=== PATIENT | male | born 1940 | race Caucasian/White ===

== ENCOUNTER 2018-05-16 07:30 | Inpatient (IN) | payer MEDICARE, OTHER ==
[2018-05-22] MEDS ORDERED: Buffered Lidocaine 0.9% SYRIN* 5 ML/SYR SYRINGE INTRADERM ONE (13:10)
[2018-05-23] MEDS ORDERED: Acetaminophen TAB* 325 MG PO ONE (06:00)
[2018-05-23] MEDS ORDERED: Lactated Ringers 1000 ML Bag* 1,000 ML IV SCH ×2 (06:00→11:00)
[2018-05-23] MEDS ORDERED: Acetaminophen TAB* 325 MG ONE (06:33)
[2018-05-23] MEDS ORDERED: ceFAZolin 2 GM PREMIX in ORs 2 GM/50 ML BAG IVPB ONE (06:33)
[2018-05-23] MEDS ORDERED: Bacitracin IV* 50,000 UNITS INJ ONE (06:43)
[2018-05-23] MEDS ORDERED: Thrombin 5,000 UNITS* 1 APPLIC KIT - topical use - TOPICAL ONE (06:43)
[2018-05-23] MEDS ORDERED: Lidocain 1% EPI 1:100,000 * 30 ML MDV ONE (06:43)
[2018-05-23] MEDS ORDERED: fentaNYL* 50 MCG/ML 2 ML VIAL (100 MCG VIAL) ONE ×3 (07:19→11:10)
[2018-05-23] MEDS ORDERED: Midazolam* 1 MG/ML 2 ML VIAL (2 MG) ONE (07:19)
[2018-05-23] MEDS ORDERED: Propofol* 10 MG/ML 20 ML BTL ONE (07:42)
[2018-05-23] MEDS ORDERED: Famotidine IV* 10 MG/ML 2 ML (20 mg) ONE (07:42)
[2018-05-23] MEDS ORDERED: Dexamethasone IV* 4 MG/ML 1 ML (4 MG) ONE (07:42)
[2018-05-23] MEDS ORDERED: Ondansetron INJ* 2 MG/ML VIAL ONE (07:42)
[2018-05-23] MEDS ORDERED: Cisatracurium* 2 MG/ML MDV 5 ML ONE ×2 (07:43→08:45)
[2018-05-23] MEDS ORDERED: EPHEDrine (Pressors)* 50 MG/ML VIAL ONE (08:12)
[2018-05-23] MEDS ORDERED: Ondansetron INJ* 2 MG/ML VIAL IV PRN (09:03)
[2018-05-23] MEDS ORDERED: DiMENhydriNATE IV* 50 MG/ML VIAL IV PUSH PRN (09:03)
[2018-05-23] MEDS ORDERED: Naloxone* 0.4 MG/ML 1 ML VIAL IV PRN (09:03)
[2018-05-23] MEDS ORDERED: Acetaminophen TAB* 325 MG PO PRN (09:03)
[2018-05-23] MEDS ORDERED: HYDROcodone/ACETAMIN 5-325 MG* 1 TAB PO PRN (10:06)
[2018-05-23] MEDS ORDERED: Magnesium Hydroxide LIQ* 30 ML UDC PO PRN (10:06)
[2018-05-23] MEDS ORDERED: hydrALAZINE IV* 20 MG/ML VIAL ONE (10:11)
[2018-05-23] MEDS: hydrALAZINE IV* 20 MG/ML VIAL IV SLOW PU PRN ×3 (10:12→10:42)
[2018-05-23] MEDS: fentaNYL* 50 MCG/ML 2 ML VIAL (100 MCG VIAL) IV PRN ×5 (10:21→11:11)
[2018-05-23] MEDS ORDERED: Morphine VIAL* 4 MG/ML VIAL (1 ml vial) ONE (11:05)
[2018-05-23] MEDS ORDERED: Dextrose 50% Syringe 50 ML* 25 GM/50 ML SYRINGE IV PUSH PRN (11:20)
[2018-05-23] MEDS: niCARdipine 0.1MG/ML IVPREMIX* 20 MG/200 ML BAG IV SCH ×3 (12:07→17:24)
[2018-05-23] MEDS: Morphine VIAL* 4 MG/ML VIAL (1 ml vial) IV PRN ×2 (12:16→17:24)
[2018-05-23] MEDS ORDERED: Haloperidol INJ IV/IM* 5 MG/ML AMP ONE (13:11)
--- NOTE | 2018-05-23 13:13 | CONS ---
CC: Dr. Melendez; Dr. Paez; Dr. Wheatley * CONSULTATION REPORT: DATE OF CONSULT: 05/23/18 PRIMARY CARE PROVIDER: Dr. Melendez from [place]. The number to his office is [phone]. Please call, obtain fax number. REQUESTING PHYSICIAN IN CONSULT: Dr. Paez. MY ATTENDING PHYSICIAN WHILE IN THE HOSPITAL: Dr. Thu Reis * (report dictated by Peter Trammell NP). REASON FOR MEDICAL CONSULTATION: Evaluation and medical management of comorbid medical problems. HISTORY OF PRESENT ILLNESS: Mr. Pond is a 78-year-old male patient who has a pretty significant history. He has a history of [place], CAD, hypertension, GERD, hyperlipidemia, history of hydrocephalus, paroxysmal AFib, diabetes, and a history of chronic back pain. He was being followed by his PCP. It was noted that he had ventriculomegaly. It was noted that the patient was having declining memory, was having increasing falls. He was having urinary incontinence. He was referred to Dr. Wheatley, who evaluated the patient. He had a large volume LP with subsequent improvement, which lasted 3 to 4 days and it was felt that the patient would benefit from neurosurgical evaluation and possible CHEMISTRY MANAGER shunt. The patient again sought care with Dr. Paez and he underwent a CHEMISTRY MANAGER shunt placement today, but because of his medical complexity, we were asked to evaluate in consult. He was evaluated in the PACU setting. He is denying having any chest pain or shortness of breath. He is admitting to having pain in his head and he does admit to having a headache. He denies having any shortness of breath. He does admit to having incisional pain to his abdomen. He denies having any nausea and denies having any vomiting. Again, because of his medical complexity, we were asked to evaluate and also in addition to this, Dr. Paez was wanting to get his blood pressure between 140 to 160 range, so we were asked to evaluate and help management of this as well. PAST MEDICAL HISTORY: Significant for: 1. [place]. 2. CAD. 3. Hypertension. 4. Hyperlipidemia. 5. Hydrocephalus. 6. GERD. 7. Paroxysmal AFib. 8. Diabetes. 9. Chronic pain. PAST SURGICAL HISTORY: He has had heart catheterization and then he had a CHEMISTRY MANAGER shunt placement today. MEDICATIONS: Home meds according to the preoperative list include: 1. Metformin 500 mg p.o. b.i.d. 2. Diltiazem 120 mg p.o. b.i.d. 3. Catapres 0.1 mg p.o. b.i.d. 4. Flomax 0.4 mg p.o. b.i.d. 5. Altace 10 mg p.o. b.i.d. 6. Potassium 10 mEq p.o. daily. 7. Imodium 2 mg p.o. every 4 hours as needed. 8. Labetalol 50 mg p.o. t.i.d. 9. Lasix 20 mg p.o. q.a.m. 10. Pepcid 20 mg p.o. b.i.d. 11. Apixaban 5 mg p.o. b.i.d. 12. Tylenol 1000 mg p.o. t.i.d. as needed. ALLERGIES TO MEDICATIONS: Include no known drug allergies. FAMILY HISTORY: He says his mother of an [place]. Father's history is unknown. SOCIAL HISTORY: He is a former smoker. He does not drink alcohol. Surrogate decision maker is his . REVIEW OF SYSTEMS: There is no documented fever. He denies having any significant weight changes. He denies having any double vision. There is no ear discharge. He denies having any rhinorrhea. There is no sore throat. No thyroid enlargement. He denies having any chest pain. Again, no orthopnea, no nocturnal dyspnea. There is no abdominal pain, no nausea, no vomiting. No dysuria, no frequency. No seizure, no loss of consciousness. No pruritus and no skin ulcerations. Review of 14 systems was completed, all others negative. PHYSICAL EXAM: Vital Signs: Blood pressure 167/84 with a pulse of 63, respirations were 16, O2 sat 93%, temperature 97.9. General: At this time, Mr. Pond is a 78-year-old male patient. He is sitting in the PACU bed. He does not appear to be in any acute distress. He appears to be well nourished and well developed. HEENT: Head: Atraumatic and normocephalic. Eyes: EOMs are intact. Sclerae anicteric and not pale. Throat: Oral mucosa appears to be moist. No oropharyngeal erythema. Neck was supple. Heart: Sounds S1, S2. He had a regular rate and rhythm. No murmurs, rubs, or gallops. Lungs: Clear to auscultation. There were no wheezes, rales, or rhonchi. Abdomen was soft. It was flat. There was tenderness along the incision site. Bowel sounds present. Extremities: Pulses were 2+ throughout. He is able to move all 4 extremities. He has no peripheral edema. Neurologically, he is awake. He is alert. He thinks it is June. He is confused to place, which is not of his baseline per the family. Cranial nerves II through XII were intact. He had no gross focal neurological deficits. Skin: Intact with the exception he has an incision to his scalp, which is clean, dry, and intact and also to his abdomen clean, dry, and intact. DIAGNOSTIC STUDIES/LAB DATA: These are preop. WBC of 9.5, RBC of 4.75, hemoglobin of 14.9, hematocrit of 45, platelet count of 316,000. The INR was 1.17. Sodium 143, potassium 4.5, chloride of 104, bicarb 31, BUN 19, creatinine of 0.89, glucose was 145. Urine showed 2+ protein, 2+ blood, 1+ wbc' s, 3+ rbc's, absent bacteria. He did have EKG preop, which shows a normal sinus rhythm, rate of 66. No ST elevations or T-wave inversions. He did have a PAC on that. Old medical records were reviewed. ASSESSMENT AND PLAN: Mr. Pond is a 78-year-old male patient coming into Dr. Paez' service today for a CHEMISTRY MANAGER shunt. We were asked to evaluate in consult. My recommendations at this point are: 1. Status post CHEMISTRY MANAGER shunt. I will defer the management to Dr. Paez and his team. 2. Coronary artery disease with a history of myocardial infarction. We will continue his beta-reba for the time being and we will continue to follow. 3. Hypertension. Again, the goal for the blood pressure is [address] Paez. I have started a nicardipine drip. We will continue his labetalol and we will slowly reintroduce medications once we can allow the blood pressure range to get below 140. 4. Gastroesophageal reflux disease. Continue PPI therapy. 5. Hyperlipidemia. Continue with current medical regimen. 6. Hydrocephalus. Defer the management to Dr. Paez and his team. 7. Atrial fibrillation. Restart Eliquis when it is okay with Neurosurg. 8. Diabetes. Continue lispro sliding scale. 9. Chronic pain. Continue p.r.n. pain medications. 10. DVT prophylaxis: I will defer to the primary team. 11. Code status: He is full code. 12. Fluids, electrolytes, and nutrition: I would recommend a consistent carb diet. TIME SPENT: Time spent on the admission was 60 minutes, greater than half the time was spent [id number] with the patient obtaining my history and physical, other half time was spent going over the plan of care with the patient and implementing plan of care. I did discuss the plan of care with my attending, Dr. Reis; she is in agreement. PETER TRAMMELL NP [id number]/[facility] #: [id number] [place]
[2018-05-23] MEDS: Haloperidol INJ IV/IM* 5 MG/ML AMP IV SLOW PU PRN ×2 (13:16→19:12)
[2018-05-23] MEDS: Insulin LISPRO* 1 UNITS UNIT SUBCUT SCH ×3 (14:06→18:36)
[2018-05-23] MEDS: Labetalol TAB* 100 MG PO SCH ×2 (14:06→20:57)
--- NOTE | 2018-05-23 14:47 | OP ---
DATE OF OPERATION: 05/23/18 - ROOM #ICU-05 DATE OF : 38 SURGEON: Shady Paez M.D. CO-SURGEON: Jasiel Cortez M.D. ANESTHESIA: General. PRE-OP DIAGNOSIS: Normal pressure hydrocephalus. POST-OP DIAGNOSIS: Normal pressure hydrocephalus. OPERATIVE PROCEDURE: The patient underwent right frontal ventriculoperitoneal shunt placement with programmable Strata valve placement. ESTIMATED BLOOD LOSS: 40 cc. COMPLICATIONS: None. SUMMARY: The patient is a very pleasant 77-year-old gentleman with progressive change in his mental status. He was found to have memory loss with unsteady gait and urinary incontinence. The patient had CT scan findings consistent with hydrocephalus and was evaluated by Dr. Wheatley, who evaluated the patient before and after large volume tap. The patient had significant improvement in his gait and was found to be a candidate for placement of BENCH LATHE OPERATOR shunt. After explaining expectations, limitations, and possible complications of the procedure to the patient and his family including his daughter and his with complications including, but not limited to bleeding, infection, risk of injury to adjacent structures, paralysis, , need for additional procedures , anesthesia risk, stroke, blindness, cancer, injury to intra-abdominal organs, injury to the lungs or neck structures, the patient and his family were agreeable to proceed with surgery. Informed consent was obtained. The patient understood that his condition may not improve and in fact may get worse after the surgery and that he may need to have additional procedures in the future, and the same was understood by the family that some of his symptoms may not be improved and in fact may get worse after the surgery. He also understood that operative plan may be modified according to intraoperative findings and conditions and the case may be abandoned or done in more than one stage. The patient and his family understood the possibility of postoperative over- shunting or undershanting with the development of subdural hematomas and need for additional procedures, and that he may need to have additional procedures in the future for malfunction or infection of the shunt. DESCRIPTION OF PROCEDURE: The patient was brought to the operating room, was placed under general anesthesia by the anesthesia team. He was carefully positioned supine with the head turned towards the left side and all bony prominences were meticulously padded. Hair was removed with surgical clippers and after the skin was prepped and draped in standard fashion, the [place] point was marked prior to draping and a small curvilinear incision was marked on the skin. Skin incision was infiltrated with local anesthetic and a #10 surgical blade was used to incise the skin. The incision was carried down to the periosteum with Bovie cautery and self-retaining retractors were introduced into the field. Periosteal elevators were used to elevate the periosteum and tunneler was used to tunnel the area between the posterior part of the performed incision and the postclavicular area. Another incision was made in the postclavicular area with a #10 surgical blade. The Strata II regular valve set in 2.5 preoperatively was connected to Bol[employer] antibiotic- impregnated catheter distally and this catheter was tunneled through these 2 incisions while the valve was left in place. A bur hole was flushed with the use of high-speed drill and the dura was gently coagulated and was incised with #11 surgical blade. Second tunneling was performed from the postclavicular incision through the anterior abdominal wall and another incision was made in the area below the right upper quadrant. The [place] ventricular catheter was used to cannulate the ventricle. Free flow of cerebrospinal fluid with low pressure was returned in the first pass. Then, the right angle connector was set in the appropriate depth and the catheter was cut and connected to the Strata valve with 2-0 silk ties. Free flow of CSF was checked to occur towards the distal catheter which was previously tunneled towards the abdominal incision. Then, attention was brought to obtain an access into the peritoneal cavity. Incision was slightly deepened with Bovie cautery and the external oblique fascia was gently divided with a #10 surgical blade and incision was slightly enlarged with Metzenbaum scissors. After blunt dissection through the anterior abdominal muscles, the transversalis fascia as well as the peritoneum was gently dissected and cut and access of the peritoneal cavity was obtained. This was confirmed with red rubber catheter with the free flow of normal saline. After placing a 3-0 Vicryl suture at the peritoneal edges and the edge of the peritoneum, the distal catheter was gently inserted into the peritoneal cavity and the incision was then closed by layers similarly. After copious irrigation and confirmation of meticulous hemostasis, meticulous inspection of all the wounds, the 2 cranial incisions were closed by layers with 2-0 inverted interrupted Vicryl sutures to approximate the subcutaneous tissues and patricio to approximate the skin. The abdominal incision was approximated with inverted interrupted 2-0 Vicryl sutures and patricio. At the end of the procedure, all counts were reported to be correct. The patient remained hemodynamically stable. He was then extubated and was transferred to Recovery in excellent condition. [id number]/[facility] #: [id number] [facility]ITALParis
--- NOTE | 2018-05-23 18:58 | CONS ---
CRITICAL CARE CONSULTATION: DATE OF CONSULT: 05/23/18 REASON FOR CONSULT: Postop management. HISTORY OF PRESENT ILLNESS: The patient is a 78-year-old white male with normal pressure hydrocephalus who underwent a ventriculoperitoneal shunt earlier today by the neurosurgery service. There were no apparent complications and the patient was brought to the intensive care unit postoperatively. The patient does have a history of confusion apparently related to the NPH, and also has hypertension, requiring postop control with nicardipine.. PAST MEDICAL HISTORY: Other medical conditions include hyperlipidemia, GERD, paroxysmal AFib, type 2 diabetes, coronary artery disease; status post CT. MEDICATIONS: Outpatient medications include: 1. Metformin 500 mg twice daily. 2. Diltiazem 120 mg twice daily. 3. Catapres 0.1 mg twice daily. 4. Flomax 0.1 mg twice daily. 5. Altace 10 mg twice daily. 6. Potassium 10 mEq daily. 7. Imodium 2 mg every 4 hours as needed. 8. Labetalol 50 mg 3 times daily. 9. Lasix 20 mg in the morning. 10. Pepcid 20 mg twice daily. 11. Apixaban 5 mg twice daily. 12. Tylenol 1 g 3 times daily as needed. ALLERGIES: No known drug allergies. REVIEW OF SYSTEMS: Noncontributory. PHYSICAL EXAM: The patient was resting comfortably in bed, but was not oriented to place or time. Vital Signs: Temp 97.9, heart rate 72, respiratory rate, 20, O2 95% on 2 L nasal cannula, blood pressure 170/90 on nicardipine drip. HEENT: Pupils mid position and reactive. Corneal reflexes intact. No asymmetric eye movements. No facial droop. Neck: Supple. Lungs: Clear to auscultation. Cardiac Exam: No murmurs, rubs, or gallops. Abdomen: Soft, nontender, nondistended. Extremities: Warm without cyanosis or edema. LABORATORY DATA: Postop blood glucose 265. Other labs pending. IMPRESSION: Satisfactory postop course at this time. MANAGEMENT PLAN: Will use intravenous haloperidol to control agitation if necessary and we will check QT interval on electrocardiogram prior to drug administration. Will also manage BP with nicardipine drip, for now. CRITICAL CARE TIME: 50 minutes. [id number]/[facility] #: [id number] [facility]
[2018-05-23] MEDS: Tamsulosin CAP* 0.4 MG PO SCH (20:57)
[2018-05-23] MEDS: cloNIDine TAB* 0.1 MG PO SCH (20:57)
[2018-05-24] MEDS: Nystatin TOP POWDER* 15 GM BTL TOPICAL SCH ×4 (00:44→22:55)
[2018-05-24] MEDS: Insulin LISPRO* 1 UNITS UNIT SUBCUT SCH ×5 (00:47→22:27)
[2018-05-24 04:40] LABS: Hematocrit 40 % (42-52); Hemoglobin 13.3 g/dl (14.0-18.0); Mean Corpuscular HGB Conc 33 g/dl (31-36); Mean Corpuscular Hemoglobin 31 pg (27-31); Mean Corpuscular Volume 93 fL (80-94); Mean Platelet Volume 7.5 fL (7.4-10.4); Platelet Count 281 10^3/ul (150-450); Red Cell Distribution Width 14 % (10.5-15); White Blood Count 12.9 10^3/ul (3.5-10.8)
[2018-05-24] MEDS: niCARdipine 0.1MG/ML IVPREMIX* 20 MG/200 ML BAG IV SCH ×3 (04:45→08:26)
[2018-05-24 04:55] LABS: Albumin 3.4 g/dL (3.2-5.2); Albumin/Globulin Ratio 1.5 (1-3); EGFR Non-African American 100.5 (>60); Globulin 2.2 g/dL (2-4); Potassium 3.9 mmol/L (3.5-5.0); Total Bilirubin 0.9 mg/dL (0.2-1.0); Total Protein 5.6 g/dL (6.4-8.9)
[2018-05-24] MEDS: Labetalol TAB* 100 MG PO SCH ×3 (08:02→21:21)
[2018-05-24] MEDS: Ramipril CAP* 10 MG PO SCH ×2 (08:03→21:22)
[2018-05-24] MEDS: Tamsulosin CAP* 0.4 MG PO SCH ×2 (08:03→21:23)
[2018-05-24] MEDS: cloNIDine TAB* 0.1 MG PO SCH ×3 (08:03→18:11)
[2018-05-24] MEDS: Haloperidol INJ IV/IM* 5 MG/ML AMP IV SLOW PU PRN ×2 (09:40→17:44)
--- NOTE | 2018-05-24 11:53 | PN ---
Date of Service: 07/25/17 Critical Care Services: Patient had an uneventful evening - off nicardipine dip today with systolic BPs 140-150 mmHg. Continues to be confused, but no different than yesterday. CT scan this AM shows the ventriculostomy tube at the tip of the left anterior horn of the ventricles. Vital Signs: Temp Pulse Resp BP SpO2 FiO2 99.3 F 80 21 149/72 92 Physical Exam: Gen:Somnolent but arousable Lungs:clear Cardiac: Reg rhythm Extremities:No cyanosis or edema Fluid Balance (Past 24 Hours): 05/24/18 06:59 Intake Total 2265.5 Output Total 250 Balance 2015.5 Weight 208 lb 1.862 oz Intake: IV Fluids 1668 LR 1668 Medicated IV 597.5 CC - Nicarpidine/Cardene 597.5 Oral 0 Output: Urine 0 Miller 250 Other: Estimated Void Medium # Voids 1 Labs: Laboratory Results - last 24 hr 05/23/18 05/23/18 05/23/18 13:29 15:13 17:07 WBC RBC Hgb Hct MCV MCH MCHC RDW Plt Count MPV Sodium Potassium Chloride Carbon Dioxide Anion Gap BUN Creatinine Est GFR ( Amer) Est GFR (Non-Af Amer) BUN/Creatinine Ratio Glucose POC Glucose (mg/dL) 265 H 241 H 184 H Calcium Total Bilirubin AST ALT Alkaline Phosphatase Total Protein Albumin Globulin Albumin/Globulin Ratio 05/23/18 05/24/18 05/24/18 22:05 04:25 04:25 WBC 12.9 H RBC 4.30 Hgb 13.3 L Hct 40 L MCV 93 MCH 31 MCHC 33 RDW 14 Plt Count 281 MPV 7.5 Sodium 141 Potassium 3.9 Chloride 105 Carbon Dioxide 29 Anion Gap 7 BUN 21 Creatinine 0.75 Est GFR ( Amer) 121.6 Est GFR (Non-Af Amer) 100.5 BUN/Creatinine Ratio 28.0 H Glucose 162 H POC Glucose (mg/dL) 253 H Calcium 9.0 Total Bilirubin 0.90 AST 10 L ALT 9 Alkaline Phosphatase 84 Total Protein 5.6 L Albumin 3.4 Globulin 2.2 Albumin/Globulin Ratio 1.5 05/24/18 10:49 WBC RBC Hgb Hct MCV MCH MCHC RDW Plt Count MPV Sodium Potassium Chloride Carbon Dioxide Anion Gap BUN Creatinine Est GFR ( Amer) Est GFR (Non-Af Amer) BUN/Creatinine Ratio Glucose POC Glucose (mg/dL) 210 H Calcium Total Bilirubin AST ALT Alkaline Phosphatase Total Protein Albumin Globulin Albumin/Globulin Ratio Studies: CT scan - as described above Nutrition: Consistent carb diet started this AM Impression: Satisfactory postop course Plan: Transfer out of ICU today - further management per neurosurgery service.
[2018-05-24] MEDS ORDERED: amLODIPine TAB* 5 MG ONE (17:40)
[2018-05-24] MEDS: amLODIPine TAB* 5 MG PO SCH (17:48)
--- NOTE | 2018-05-24 23:25 | PN ---
Progress Note - Progress Note Date of Service: 05/24/18 SOAP: Subjective: []Patient was seen in ICU early this am and at pm. No events ON except episodes of mild agitation, responding to Haldol. Tolerated procedure well yesterday. OOB in a chair this pm, awaiting floor bed. Objective: []VSS, Afebrile. Wounds s,c,d. Valve pumps and refills briskly, AAOx1, MUSTAPHA, CN II-XII grossly intact Motor 5/5 all extremities. No pronator drift. Sensory grossly intact to light touch. Assessment: []78 yo m POD#1 VPS for NPH Plan: []Monitor VS, Neurochecks Transfer to floor if ok with ICU, IM team. OOB with assistance. CT brain revealed no hemorrhage. Ventricular catheter tip at frontal horn as depicted by coronal and saggital reconstructions. DIscussed in extend with patient's and daughter on the phone regarding CT findings. Shunt seems to function very well. Discussed different options including revision of ventricular catheter. Given the fact that shunt is functioning well and patient's comorbitidies, we agreed with family to observe patient for now and reserve the possibilty of revision if signs of shunt malfunction arise. Appreciate IM/ICU care. Lea Boston
[2018-05-25] MEDS ORDERED: hydrALAZINE IV* 20 MG/ML VIAL IV SLOW PU PRN (01:19)
[2018-05-25] MEDS ORDERED: Labetalol IV* 5 MG/ML 20 ML VIAL IV PUSH PRN (04:25)
[2018-05-25] MEDS ORDERED: hydrALAZINE IV* 20 MG/ML VIAL IV SLOW PU ONE ×2 (04:59→05:00)
[2018-05-25] MEDS: cloNIDine TAB* 0.1 MG PO SCH ×3 (06:44→18:07)
[2018-05-25] MEDS ORDERED: Acetaminophen TAB* 325 MG PO PRN (08:22)
[2018-05-25] MEDS: Labetalol TAB* 100 MG PO SCH ×3 (09:08→20:10)
[2018-05-25] MEDS: Ramipril CAP* 10 MG PO SCH ×2 (09:09→20:10)
[2018-05-25] MEDS: Tamsulosin CAP* 0.4 MG PO SCH ×2 (09:09→20:10)
[2018-05-25] MEDS: amLODIPine TAB* 5 MG PO SCH (09:09)
[2018-05-25] MEDS: Insulin LISPRO* 1 UNITS UNIT SUBCUT SCH ×4 (09:10→20:48)
--- NOTE | 2018-05-25 09:40 | PN ---
Subjective Date of Service: 05/25/18 Interval History: Patient is resting calmly and comfortably in bed eating breakfast, however he is suspicious of staff at times, unwilling to take medications at times, and not oriented to location. He was hypertensive and agitated overnight, and was unwilling to take all of his his PO antihypertensives, so hydralazine was ordered. Also recieved IV haldol overnight. Today was awake and alert, oriented to self and month, but was unaware he was in the hospital. Patient does endorse back pain, which is a chronic problem for him, and for which he has pain medication ordered. He does not report any headache or surgical site pain either in his head or his abdomen. He denies numbness, tingling or any focal weakness. His appetite is intact and he ate breakfast without nausea/vomiting. He denies chest pain, shortness of breath, palpitations, abdominal pain. Objective Active Medications: Acetaminophen (Tylenol Tab*) 650 mg PO Q4H PRN PRN Reason: PAIN Last Admin: 05/25/18 09:08 Dose: 650 mg Hydrocodone Bitart/Acetaminophen ([place] 5-325 Tab*) 1 tab PO Q4H PRN PRN Reason: moderate pain Clonidine HCl (Catapres Tab*) 0.1 mg PO Q12H [facility] Last Admin: 05/25/18 09:09 Dose: 0.1 mg Dextrose (D50w Syringe 50 Ml*) 12.5 gm IV PUSH .FOR FS < 60 - SS PRN PRN Reason: FS < 60 Furosemide (Lasix Tab*) 20 mg PO QAM [facility] Haloperidol Lactate (Haldol Inj Iv/Im*) 5 mg IV SLOW PU Q6H PRN PRN Reason: AGITATION Last Admin: 05/24/18 17:44 Dose: 5 mg Hydralazine HCl (Apresoline Iv*) 5 mg IV SLOW PU Q6H PRN PRN Reason: SYSTOLIC BP GREATER THAN: Insulin Human Lispro (Humalog*) 0 units SUBCUT [facility]; Protocol Last Admin: 05/25/18 09:10 Dose: 2 units Labetalol HCl (Trandate Tab*) 50 mg PO TID [facility] Last Admin: 05/25/18 09:08 Dose: 50 mg Magnesium Hydroxide (Milk Of Magnesia Liq*) 30 ml PO DAILY PRN PRN Reason: CONSTIPATION Morphine Sulfate (Morphine Vial*) 1 mg IV Q1H PRN PRN Reason: PAIN Last Admin: 05/23/18 17:24 Dose: 1 mg Non-Formulary Medication (Diltiazem Hcl [Diltiazem Hcl]) 120 mg PO BID [facility] Non-Formulary Medication (Potassium Chlor Tab (Nf)) 10 meq PO QAM [facility] Nystatin (Nystatin Top Powder*) 1 applic TOPICAL TID [facility] Last Admin: 05/24/18 22:55 Dose: 1 powder Ramipril (Altace Cap*) 10 mg PO BID [facility] Last Admin: 05/25/18 09:09 Dose: 10 mg Tamsulosin HCl (Flomax Cap*) 0.4 mg PO BID [facility] Last Admin: 05/25/18 09:09 Dose: 0.4 mg Vital Signs - 8 hr 05/25/18 05/25/18 05/25/18 04:05 07:41 07:51 Temperature 98.3 F Pulse Rate 85 100 Respiratory 18 Rate Blood Pressure 201/92 170/92 (mmHg) O2 Sat by Pulse 96 95 Oximetry 05/25/18 08:01 Temperature Pulse Rate 96 Respiratory Rate Blood Pressure (mmHg) O2 Sat by Pulse Oximetry Oxygen Devices in Use Now: None Eyes: No Scleral Icterus, PERRLA Ears/Nose/Mouth/Throat: NL Teeth, Lips, Gums Neck: NL Appearance and Movements; NL JVP, Trachea Midline Respiratory: Symmetrical Chest Expansion and Respiratory Effort, Clear to Auscultation Cardiovascular: NL Sounds; No Murmurs; No JVD, No Edema, - - Irregularly irregular Abdominal: NL Sounds; No Tenderness; No Distention Extremities: No Edema Skin: No Rash or Ulcers, - - Dressing on head and abdomen CDI. Neurological: NL Sensation, NL Muscle Strength and Tone, - - Alert and oriented to person and month, but not place. 5/5 strength in all 4 extremities. Lines/Tubes/Other Access: Clean, Dry and Intact Peripheral IV Nutrition: Taking PO's Result Diagrams: 05/24/18 04:25 05/24/18 04:25 Microbiology and Other Data: Microbiology 05/23/18 12:00 Nasal Screen MRSA (PCR) - Final Nasal Mrsa Not Detected Assess/Plan/Problems-Billing Assessment: Mr Pond is a 78 year old male with a PMH CAD, [place], HTN, HLD, paroxysmal afib, DM, GERD, chronic back pain, hydrocephalus admitted for RAG WASHER shunt placement with Dr. Paez on 05/23. POD2. Post-operative course has been complicated by hypertension. - Patient Problems (1) S/P RAG WASHER shunt Current Visit: Yes Status: Acute Comment: - Plan per primary team, Neurosurgery - Pain well controlled on exam today. No focal neuro deficits noted, however pt still appears more confused than baseline as he does not know his location and is distrustful of staff and fears he has been kidnapped (2) Hypertension Current Visit: Yes Status: Acute Code(s): I10 - ESSENTIAL (PRIMARY) HYPERTENSION SNOMED Code(s): 91435013 Comment: - Goal SBP 140-160 per primary team, neurosurgery - Initially requiring cardene drip and ICU stay. Was weaned off drip, but was hypertensive again last night to 190-200, requiring IV hydralazine which brought his SBP down to 170. This is complicated by the fact that the patient was agitated at the time and was refusing his PO antihypertensives. - The pt did take his oral antihypertensives, norvasc, ramipril, labetalol, and clonidine this morning. The patient takes additional antihypertensives at home, lasix and diltiazem, which I have added back on to his regimen to achieve better control. I have discontinued the norvasc since I restarted the diltiazem. The patient's home med list indicates that he has diffucult to control hypertension at baseline. - I have also added PRN hydralazine for SBP > 170 to achieve his BP goal (3) Paroxysmal A-fib Current Visit: Yes Status: Acute Code(s): I48.0 - PAROXYSMAL ATRIAL FIBRILLATION SNOMED Code(s): 170620014 Comment: - HR irregular in the 90s - Continue rate control with labetolol. I have also added back pt's home diltiazem - Anticoagulation held in the setting of elevated risk of bleeding due to recent neurosurgery. Per Dr Paez, ok to resume his home eliquis 5 days out (4) CAD (coronary artery disease) Current Visit: Yes Status: Acute Code(s): I25.10 - ATHSCL HEART DISEASE OF [place] CORONARY ARTERY W/O ANG PCTRS SNOMED Code(s): 62388820 Comment: - Continue labetalol (5) Diabetes Current Visit: Yes Status: Acute Code(s): E11.9 - TYPE 2 DIABETES MELLITUS WITHOUT COMPLICATIONS SNOMED Code(s): 63516979 Comment: - Holding home metformin - Continue fingersticks, sliding scale lispro and carb contolled diet (6) GERD (gastroesophageal reflux disease) Current Visit: Yes Status: Acute Code(s): K21.9 - GASTRO-ESOPHAGEAL REFLUX DISEASE WITHOUT ESOPHAGITIS SNOMED Code(s): 377042328 (7) DVT prophylaxis Current Visit: Yes Status: Acute Code(s): WWW2582 - SNOMED Code(s): 284841903 Comment: - Per primary team: SCDs. Encourage early ambulation. (8) Full code status Current Visit: Yes Status: Acute Code(s): Z78.9 - OTHER SPECIFIED HEALTH STATUS SNOMED Code(s): 619844949 Status and Disposition: Inpatient. Dispo per primary team, neurosurgery. Attending: Thu Reis
[2018-05-25] MEDS: Nystatin TOP POWDER* 15 GM BTL TOPICAL SCH ×3 (10:45→20:22)
--- NOTE | 2018-05-25 16:47 | PN ---
Progress Note - Progress Note Date of Service: 05/25/18 SOAP: Subjective: [] No events ON. On regular floor. Tolerates po well. Objective: [] VSS, Afebrile. Wounds s,c,d. Valve pumps and refills briskly, AAOx1, MUSTAPHA, CN II-XII grossly intact Motor 5/5 all extremities. No pronator drift. Sensory grossly intact to light touch. Assessment: []78 yo m POD#2 VPS for NPH Plan: [] ]Monitor VS, Neurochecks OOB with assistance. DC planning Discussed with patient's and daughter on the phone. Appreciate IM care. Lea Paez.
[2018-05-25] MEDS: Diltiazem CD CAP* 120 MG PO SCH (20:10)
[2018-05-25] MEDS: hydrALAZINE IV* 20 MG/ML VIAL IV SLOW PU PRN (20:11)
[2018-05-26] MEDS: cloNIDine TAB* 0.1 MG PO SCH (06:02)
[2018-05-26] MEDS: hydrALAZINE IV* 20 MG/ML VIAL IV SLOW PU PRN (06:02)
[2018-05-26 06:20] LABS: ABS Basophils 0.1 10^3/ul (0-0.2); ABS Eosinophils 0.1 10^3/ul (0-0.6); ABS Nucleated RBC 0 10^3/ul; Eosinophil % 0.9 %; Hematocrit 46 % (42-52); Hemoglobin 15.7 g/dl (14.0-18.0); Mean Corpuscular HGB Conc 34 g/dl (31-36); Mean Corpuscular Hemoglobin 32 pg (27-31); Mean Corpuscular Volume 93 fL (80-94); Mean Platelet Volume 7.6 fL (7.4-10.4); Nucleated Red Blood Cells % 0; Platelet Count 280 10^3/ul (150-450); Red Blood Count 4.97 10^6/ul (4.00-5.40); Red Cell Distribution Width 14 % (10.5-15); White Blood Count 10.2 10^3/ul (3.5-10.8)
[2018-05-26 06:43] LABS: BUN/Creatinine Ratio 22.5 (8-20); Potassium 3.1 mmol/L (3.5-5.0)
[2018-05-26] MEDS ORDERED: Furosemide TAB* 20 MG PO SCH (09:00)
[2018-05-26] MEDS ORDERED: Potassium Chlor TAB* 10 MEQ TAB.ER PO SCH (09:00)
[2018-05-26] MEDS: Ramipril CAP* 10 MG PO SCH (09:08)
[2018-05-26] MEDS: Labetalol TAB* 100 MG PO SCH ×2 (09:09→13:14)
[2018-05-26] MEDS: Tamsulosin CAP* 0.4 MG PO SCH (09:09)
[2018-05-26] MEDS: Diltiazem CD CAP* 120 MG PO SCH (09:09)
[2018-05-26] MEDS: Insulin LISPRO* 1 UNITS UNIT SUBCUT SCH ×2 (09:10→13:13)
[2018-05-26] MEDS: Nystatin TOP POWDER* 15 GM BTL TOPICAL SCH ×2 (09:13→13:18)
[2018-05-26 12:25] VITALS: BP 144/87
--- NOTE | 2018-05-26 14:46 | PN ---
Subjective Date of Service: 05/26/18 Interval History: Pt is feeling well. He is anxious to go home. His states his BP is usually elevated in the 140-150 range. He was not agitated over night last night. Objective Active Medications: Acetaminophen (Tylenol Tab*) 650 mg PO Q4H PRN PRN Reason: PAIN Last Admin: 05/25/18 09:08 Dose: 650 mg Hydrocodone Bitart/Acetaminophen ([place] 5-325 Tab*) 1 tab PO Q4H PRN PRN Reason: moderate pain Clonidine HCl (Catapres Tab*) 0.1 mg PO Q12H [facility] Last Admin: 05/26/18 06:02 Dose: 0.1 mg Dextrose (D50w Syringe 50 Ml*) 12.5 gm IV PUSH .FOR FS < 60 - SS PRN PRN Reason: FS < 60 Diltiazem HCl (Cardizem Cd Cap*) 120 mg PO BID [facility] Last Admin: 05/26/18 09:09 Dose: 120 mg Furosemide (Lasix Tab*) 20 mg PO QAM [facility] Last Admin: 05/26/18 09:09 Dose: 20 mg Haloperidol Lactate (Haldol Inj Iv/Im*) 5 mg IV SLOW PU Q6H PRN PRN Reason: AGITATION Last Admin: 05/24/18 17:44 Dose: 5 mg Hydralazine HCl (Apresoline Iv*) 5 mg IV SLOW PU Q6H PRN PRN Reason: SYSTOLIC BP GREATER THAN: Last Admin: 05/26/18 06:02 Dose: 5 mg Insulin Human Lispro (Humalog*) 0 units SUBCUT ACHS [facility]; Protocol Last Admin: 05/26/18 13:13 Dose: 2 units Labetalol HCl (Trandate Tab*) 100 mg PO TID [facility] Magnesium Hydroxide (Milk Of Magnesia Liq*) 30 ml PO DAILY PRN PRN Reason: CONSTIPATION Morphine Sulfate (Morphine Vial*) 1 mg IV Q1H PRN PRN Reason: PAIN Last Admin: 05/23/18 17:24 Dose: 1 mg Nystatin (Nystatin Top Powder*) 1 applic TOPICAL TID [facility] Last Admin: 05/26/18 13:18 Dose: Not Given Potassium Chloride (Klor Con Er Tab*) 10 meq PO QAM [facility] Last Admin: 05/26/18 09:11 Dose: 10 meq Ramipril (Altace Cap*) 10 mg PO BID [facility] Last Admin: 05/26/18 09:08 Dose: 10 mg Tamsulosin HCl (Flomax Cap*) 0.4 mg PO BID [facility] Last Admin: 05/26/18 09:09 Dose: 0.4 mg Vital Signs - 8 hr 05/26/18 05/26/18 05/26/18 07:22 07:52 11:44 Temperature 97.8 F 97.5 F Pulse Rate 88 97 Respiratory 18 Rate Blood Pressure 152/84 144/87 (mmHg) O2 Sat by Pulse 91 96 96 Oximetry Oxygen Devices in Use Now: None Appearance: Elderly male sitting in a chair, NAD Eyes: No Scleral Icterus Ears/Nose/Mouth/Throat: Mucous Membranes Moist Respiratory: Symmetrical Chest Expansion and Respiratory Effort, Clear to Auscultation Cardiovascular: NL Sounds; No Murmurs; No JVD, - - irregularly irregular, controlled rate; 1+ LE edema Abdominal: NL Sounds; No Tenderness; No Distention Extremities: No Clubbing, Cyanosis Skin: No Nodules or Sclerosis Neurological: - - pleasantly confused Result Diagrams: 05/26/18 05:37 05/26/18 05:37 Microbiology and Other Data: Microbiology 05/23/18 12:00 Nasal Screen MRSA (PCR) - Final Nasal Mrsa Not Detected Assess/Plan/Problems-Billing Mr Pond is a 78 year old male with a PMHx CAD, [place], HTN, HLD, paroxysmal afib, DM, GERD, chronic back pain, hydrocephalus admitted for [employer] PROJECT MANAGER shunt placement with Dr. Paez on 05/23. - Patient Problems (1) Hypertension Current Visit: Yes Status: Acute Code(s): I10 - ESSENTIAL (PRIMARY) HYPERTENSION SNOMED Code(s): 54425596 Comment: BP remains relatively uncontrolled but he was not receiving his home does of labetolol 100mg TID. This likely contributes to his poorly controlled BP while hospitalized. He will be started back on his usual dose and his BP will need to be monitored. Continue all other home antihypertensives at his home dose. (2) Normal pressure hydrocephalus Current Visit: Yes Status: Acute Code(s): G91.2 - (IDIOPATHIC) NORMAL PRESSURE HYDROCEPHALUS SNOMED Code(s): 14062546 Comment: S/P [employer] PROJECT MANAGER shunt. Follow up with Dr. Paez as an outpatient. (3) S/P [employer] PROJECT MANAGER shunt Current Visit: Yes Status: Acute Comment: Management per neurosurgery, plan for d/c home today. (4) Paroxysmal A-fib Current Visit: Yes Status: Acute Code(s): I48.0 - PAROXYSMAL ATRIAL FIBRILLATION SNOMED Code(s): 524339839 Comment: Continue labetolol and diltiazem. Resume eliquis early next week per neurosurgery. (5) CAD (coronary artery disease) Current Visit: Yes Status: Acute Code(s): I25.10 - ATHSCL HEART DISEASE OF [place] CORONARY ARTERY W/O ANG PCTRS SNOMED Code(s): 65772521 Comment: Continue labetolol. (6) Diabetes Current Visit: Yes Status: Acute Code(s): E11.9 - TYPE 2 DIABETES MELLITUS WITHOUT COMPLICATIONS SNOMED Code(s): 48119399 Comment: Resume metformin on d/c. (7) GERD (gastroesophageal reflux disease) Current Visit: Yes Status: Acute Code(s): K21.9 - GASTRO-ESOPHAGEAL REFLUX DISEASE WITHOUT ESOPHAGITIS SNOMED Code(s): 430137442 Comment: Continue famotidine. (8) DVT prophylaxis Current Visit: Yes Status: Acute Code(s): WMV4883 - SNOMED Code(s): 672081973 Comment: Resume eliquis early next week. (9) Full code status Current Visit: Yes Status: Acute Code(s): Z78.9 - OTHER SPECIFIED HEALTH STATUS SNOMED Code(s): 387314898 Status and Disposition: d/c home per neurosurgery
[2018-05-26] MEDS ORDERED: Labetalol TAB* 100 MG PO SCH (21:00)
--- NOTE | 2018-05-26 22:39 | PN ---
Progress Note - Progress Note Date of Service: 05/26/18 SOAP: Subjective: [] Patient seen earlier today. No events ON. On regular floor. Tolerates po well. Objective: []VSS, Afebrile. Wounds s,c,d. Valve pumps and refills briskly, AAOx1, MUSTAPHA, CN II-XII grossly intact Motor 5/5 all extremities. No pronator drift. Sensory grossly intact to light touch. Assessment: []]78 yo m POD#3 VPS for NPH Plan: []Monitor VS, Neurochecks OOB with assistance. DC planning today if ok with IM. is project manager has contacted family. Appreciate IM care. Lea [place]
== END 2018-05-26 15:00 | disposition home or self-care (01) | DRG 33 ==
LOC: AA 05-23 05:44 → ICU 05-23 11:58 → SSU 05-24 18:34
PROVIDERS: ADMIT Neurological Surgery; ATTEND Neurological Surgery
PROC: 00160J6 Bypass Cerebral Ventricle to Peritoneal Cavity with Synthetic Substitute, Open Approach (ICD-10-PCS; principal; 2018-05-23 07:30)
DX: G91.2 (Idiopathic) normal pressure hydrocephalus (principal); E11.9 Type 2 diabetes mellitus without complications; I10 Essential (primary) hypertension; I25.10 Atherosclerotic heart disease of native coronary artery without angina pectoris; I48.91 Unspecified atrial fibrillation; R41.3 Other amnesia; R32 Unspecified urinary incontinence; K21.9 Gastro-esophageal reflux disease without esophagitis; E78.5 Hyperlipidemia, unspecified; I48.0 Paroxysmal atrial fibrillation; G89.29 Other chronic pain; M54.9 Dorsalgia, unspecified; G93.89 Other specified disorders of brain; Z95.5 Presence of coronary angioplasty implant and graft; I25.2 Old myocardial infarction; Z91.81 History of falling; Z87.891 Personal history of nicotine dependence
CPT/HCPCS: 36415; 70450; 71045; 80048; 80053; 85025; 85027; 87641; 93005; A9270-GY; G8978-GP-CL; G8979-GP-CK; G8987-GO-CK; G8988-GO-CI; J0360; J0690; J1100; J1630; J2250; J2270; J2405; J2704; J3010